=== PATIENT | female | born 1945 | race African-American/Black ===

== ENCOUNTER 2016-12-10 12:50 | Outpatient (RCR) | payer OTHER | END 2016-12-31 | disposition home or self-care (01) | LOC: PTY 12:50 | PROVIDERS: ATTEND Internal Medicine | DX: M54.5 Low back pain (principal) | CPT/HCPCS: 97035; 97110; 97140; G0283 ==

== ENCOUNTER 2017-01-02 09:15 | Outpatient (RCR) | payer OTHER | END 2017-01-28 | disposition home or self-care (01) | LOC: PTY 09:15 | PROVIDERS: ATTEND Internal Medicine | DX: M54.5 Low back pain (principal) | CPT/HCPCS: 97110; 97140; G0283 ==

== ENCOUNTER 2017-01-30 08:10 | Outpatient (RCR) | payer OTHER | END 2017-02-28 | disposition home or self-care (01) | LOC: PTY 08:10 | PROVIDERS: ATTEND Internal Medicine | DX: M54.5 Low back pain (principal) | CPT/HCPCS: 97110; 97140; G0283 ==

== ENCOUNTER 2017-04-11 08:00 | Outpatient (RCR) | payer OTHER | END 2017-04-30 | disposition home or self-care (01) | LOC: PTY 08:00 | PROVIDERS: ATTEND Internal Medicine | DX: M54.5 Low back pain (principal); G89.29 Other chronic pain; M48.00 Spinal stenosis, site unspecified | CPT/HCPCS: 97110; 97162; G0283 ==

== ENCOUNTER 2017-05-02 08:45 | Outpatient (RCR) | payer OTHER | END 2017-05-30 | disposition home or self-care (01) | LOC: PTY 08:45 | PROVIDERS: ATTEND Internal Medicine | DX: M17.12 Unilateral primary osteoarthritis, left knee (principal) | CPT/HCPCS: 97110; G0283 ==

== ENCOUNTER 2017-06-05 09:53 | Outpatient (RCR) | payer OTHER | END 2017-06-30 | disposition home or self-care (01) | LOC: PTY 09:53 | PROVIDERS: ATTEND Internal Medicine | DX: M17.12 Unilateral primary osteoarthritis, left knee (principal) | CPT/HCPCS: 97110; G0283 ==

== ENCOUNTER 2017-12-10 08:47 | Outpatient (RCR) | payer OTHER | END 2017-12-31 | disposition home or self-care (01) | LOC: PTY 08:47 | DX: M54.31 Sciatica, right side (principal); M17.0 Bilateral primary osteoarthritis of knee; I10 Essential (primary) hypertension; Z86.73 Personal history of transient ischemic attack (TIA), and cerebral infarction without residual deficits; M81.0 Age-related osteoporosis without current pathological fracture | CPT/HCPCS: 97110; 97161; G0283 ==

== ENCOUNTER 2018-01-06 09:00 | Outpatient (RCR) | payer OTHER | END 2018-01-28 | disposition home or self-care (01) | LOC: PTY 09:00 | PROVIDERS: ATTEND Internal Medicine | DX: M75.111 Incomplete rotator cuff tear or rupture of right shoulder, not specified as traumatic (principal) ==